=== PATIENT | female | born 1995 | race Caucasian/White ===

== ENCOUNTER 2017-06-07 20:06 | Emergency (ER) | payer OTHER ==
[2017-06-07 20:18] VITALS: BP 141/84
--- NOTE | 2017-06-07 21:20 | ER Document Report ---
ED Skin Rash/Insect Bite/Abscs - General Chief Complaint: Rash Stated Complaint: RASH Time Seen by Provider: 06/07/17 20:38 TRAVEL OUTSIDE OF THE [place] IN LAST 30 DAYS: No - HPI Patient complains to provider of: Skin rash/lesion Onset: Other - 3 weeks Onset/Duration: Gradual Quality of pain: No pain Skin Character: Blanching, Macules, Papules, Patchy Identify cause: No Similar symptoms previously: Yes - h/o psoriasis - Related Data Allergies/Adverse Reactions: No Known Allergies Allergy (Verified 06/07/17 20:15) Past Medical History - Social History Smoking Status: Never Smoker Family History: Reviewed & Not Pertinent Patient has suicidal ideation: No Patient has homicidal ideation: No Renal/ Medical History: Denies: Hx Peritoneal Dialysis - Immunizations Hx Diphtheria, Pertussis, Tetanus Vaccination: Yes Review of Systems - Review of Systems Constitutional: No symptoms reported Skin: See HPI -: Yes All other systems reviewed and negative Physical Exam - Vital signs Vitals: Temp Pulse Resp BP Pulse Ox 98.1 F 94 16 141/84 H 98 06/07/17 20:15 06/07/17 20:15 06/07/17 20:15 06/07/17 20:15 06/07/17 20:15 - General General appearance: Appears well, Alert In distress: None - Neurological Neuro grossly intact: Yes Cognition: Normal Orientation: AAOx4 [place] Coma Scale Eye Opening: Spontaneous [place] Coma Scale Verbal: Oriented [place] Coma Scale Motor: Obeys Commands [place] Coma Scale Total: 15 - Skin Skin Temperature: Warm Skin Moisture: Dry Skin Color: Normal Skin Turgor: Elastic Skin irregularity: Rash Location of irregularity: Generalized Character of irregularity: Patchy Irregularity with: Other - psoriaisis, no streaking, no areas within the web spaces Course - Re-evaluation Re-evalutation: 06/07/17 21:42 Patient is a 22-year-old female who states she has a history of psoriasis and presents with a rash. Patient was told earlier today and it is scabies but comes for second opinion. Rashes consistent with psoriasis. Patient to follow- up with dermatology. No concern for SJS. - Vital Signs Vital signs: Temp Pulse Resp BP Pulse Ox 98.1 F 94 16 141/84 H 98 06/07/17 20:15 06/07/17 20:15 06/07/17 20:15 06/07/17 20:15 06/07/17 20:15 Discharge - Discharge Clinical Impression: Rash Condition: Good Disposition: HOME, SELF-CARE Instructions: Psoriasis ([facility]) Additional Instructions: Please follow up with a applied anthropologist for definitive diagnosis Prescriptions: Methylprednisolone [Medrol Dosepack (4 mg/Tab) 21 Tab/Dosepak] 4 mg PO ASDIR PRN #[id number] [email or web address] PRN Reason: Referrals: LISA WHITE DO [ACTIVE STAFF] - Follow up in 1 week
[2017-06-07] MEDS ORDERED: METHYLPREDNISOLONE INJ 125 MG/2 ML SDV IM ONE (21:21)
== END 2017-06-07 21:31 | disposition home or self-care (01) ==
LOC: ER 20:06
DX: R21 Rash and other nonspecific skin eruption (principal); L40.9 Psoriasis, unspecified
CPT/HCPCS: 99282; 96372; J2930